=== PATIENT | male | born 1990 | race African-American/Black ===

== ENCOUNTER 2017-07-08 07:44 | Emergency (ER) | payer MEDICAID ==
[~2017-07-08] VITALS: Ht 170.2 cm; Wt 70.0 kg
[2017-07-08] MEDS ORDERED: KEPP500 PO (07:50)
[2017-07-08] MEDS ORDERED: MORPHINE SULFATE 10 MG/ML CPJ IM ONE (09:30)
[2017-07-08 11:37] LABS: BASOPHILS % 0.4 % (0.0-2.0); EOSINOPHILS % 1.5 % (0.0-5.0); HEMATOCRIT. 41.5 % (42.0-52.0); HEMOGLOBIN. 13.9 g/dL (14.0-18.0); LYMPHOCYTES % 22.5 % (20.0-50.0); MEAN CORPUSCULAR HEMOGLOBIN 32.3 pg (28.0-32.0); MEAN CORPUSCULAR VOLUME 96.3 fL (80.0-94.0); MEAN PLATELET VOLUME 7.4 fl (7.4-10.4); MONOCYTES % 9.2 % (2.0-8.0); NEUTROPHILS % 66.4 % (40.0-76.0); PLATELET 263 x1000/uL (130-400); RED BLOOD CELL COUNT 4.31 mill/uL (4.7-6.1); RED CELL DISTRIBUTION WIDTH 13.6 % (11.6-14.6)
[2017-07-08 11:41] LABS: CHLORIDE 110 mEq/L (98-107)
[2017-07-08 11:47] LABS: INR 1.1; PROTHROMBIN TIME 11.6 sec (9.4-11.6)
[2017-07-08 12:25] VITALS: BP 121/69
== END 2017-07-08 12:40 | disposition home or self-care (01) ==
LOC: ER 08:11 → EDBD 08:11 → ER 12:40
DX: S52.501A Unspecified fracture of the lower end of right radius, initial encounter for closed fracture (principal); M54.2 Cervicalgia; R51 Headache; V19.88XA Pedal cyclist (driver) (passenger) injured in other specified transport accidents, initial encounter; Y93.55 Activity, bike riding; Y92.89 Other specified places as the place of occurrence of the external cause; Y99.8 Other external cause status
CPT/HCPCS: 29125; 36415; 70450; 71045; 72125; 72170; 73080; 73110; 80048; 85025; 85610; 96372; 99285; J2270; Z7610; A4565